=== PATIENT | female | born 1960 | race Caucasian/White ===

== ENCOUNTER → 2021-07-31 | Outpatient (CLI) | payer OTHER | LOC: KOH-I 08:46 | DX: S82.832A Other fracture of upper and lower end of left fibula, initial encounter for closed fracture (principal); X58.XXXA Exposure to other specified factors, initial encounter | CPT/HCPCS: 73610 ==

== ENCOUNTER → 2021-08-21 | Outpatient (CLI) | payer OTHER | LOC: KOH-I 08:27 | DX: S82.492D Other fracture of shaft of left fibula, subsequent encounter for closed fracture with routine healing (principal) | CPT/HCPCS: 73610 ==